=== PATIENT | female | born 1985 | race Caucasian/White ===

== ENCOUNTER 2024-12-18 15:40 | Emergency (ER) | payer MEDICAID ==
[~2024-12-18] VITALS: Ht 157.5 cm; Wt 67.0 kg
[2024-12-18] MEDS ORDERED: ERYT1OIN6 EACHEYE (16:30)
[2024-12-18 16:37] VITALS: BP 116/65; PULSE 84; RESP 16; TEMP 99; O2SAT 99
== END 2024-12-18 16:38 | disposition home or self-care (01) ==
LOC: ER 15:42
DX: H10.9 Unspecified conjunctivitis (principal); Z88.8 Allergy status to other drugs, medicaments and biological substances
CPT/HCPCS: 99283

== ENCOUNTER 2024-12-21 01:16 | Emergency (ER) | payer MEDICAID ==
[~2024-12-21] VITALS: Ht 157.5 cm; Wt 68.6 kg
[~2024-12-21 01:16] MED LIST: ERYT1OIN6 EACHEYE
[2024-12-21 01:56] VITALS: PULSE 110
[2024-12-21] MEDS: bisacodyl 5mg tablet.DR PO ONE (01:58)
[2024-12-21] MEDS: ibuprofen tablet 400 MG TABLET PO ONE (01:58)
[2024-12-21] MEDS: proCHLORperazine 10mg tablet PO ONE (01:58)
[2024-12-21] MEDS: acetaminophen 325mg tablet PO ONE (01:59)
[2024-12-21] MEDS: LIDOcaine 2% Viscous 15ml cup MM ONE (01:59)
[2024-12-21] MEDS ORDERED: PROC-8 PO (02:28)
[2024-12-21] MEDS ORDERED: HYDR30CR79 TOP (02:28)
[2024-12-21] MEDS ORDERED: LIDO30CR TOP (02:28)
[2024-12-21 02:36] VITALS: BP 113/68; RESP 14; TEMP 98.4; O2SAT 98
== END 2024-12-21 02:38 | disposition home or self-care (01) ==
LOC: ER 01:17
DX: K64.9 Unspecified hemorrhoids (principal); K59.00 Constipation, unspecified; Z88.1 Allergy status to other antibiotic agents
CPT/HCPCS: 99284; Q0164